=== PATIENT | male | born 1960 | race Caucasian/White ===

== ENCOUNTER 2017-10-15 05:46 | Emergency (ER) | payer BC ==
[~2017-10-15] VITALS: Ht 182.9 cm; Wt 101.2 kg
[2017-10-15 06:40] LABS: HEMATOCRIT 45.4 % (38.0-50.0); HEMOGLOBIN 15.7 G/DL (12.5-16.6); MCH 31.6 PG (29.0-34.0); MCHC 34.6 G/DL (30.0-36.0); MCV 91.3 FL (86-99); PLATELET COUNT 237 K/uL (156-360); RBC DIS.WIDTH-CV 12.3 % (11.8-14.6); RBC DIS.WIDTH-SD 40.7 % (39-53); RED BLOOD COUNT 4.97 M/uL (4.00-5.50); WHITE BLOOD COUNT 10.8 K/uL (4.1-10.2)
[2017-10-15] MEDS ORDERED: LIPITOR10 MG PO (06:44)
[2017-10-15 06:59] LABS: CHLORIDE 105 MEQ/L (99-109); CREATININE 1.3 MG/DL (0.6-1.3); GFR ESTIMATE (CALCULATED) > 59 mL/min/ (58.99-99999); GLUCOSE 108 mg/dL (70-99); SODIUM 142 MEQ/L (136-147); UREA NITROGEN (BUN) 18 mg/dL (9-23)
[2017-10-15 07:57] LABS: APPEARANCE CLEAR ((CLEAR)); BILIRUBIN NEGATIVE; BLOOD LARGE; COLOR YELLOW ((YELLOW)); GLUCOSE (STRIP) NEGATIVE; KETONES NEGATIVE; LEUKOCYTES NEGATIVE; NITRITE NEGATIVE; PROTEIN (STRIP) NEGATIVE; SPECIFIC GRAVITY 1.024 (1.000-1.030); UROBILINOGEN 0.2 MG/DL (0.2-1.0)
[2017-10-15 08:01] LABS: BACTERIA NONE SEEN /HPF; EPITHELIAL CELLS RARE /HPF; MUCUS 1+ /LPF; RED BLOOD CELLS 40-50 /HPF (0-5); UCUL ADDED? NO; WHITE BLOOD CELLS 0-5 /HPF (0-5)
[2017-10-15] MEDS ORDERED: ZOFRAN ODT8 MG PO (10:00)
[2017-10-15] MEDS ORDERED: PERCOCET 5/31 TABLET PO (10:00)
[2017-10-15] MEDS ORDERED: FLOMAX0.4 MG PO (10:00)
[2017-10-15 10:28] VITALS: BP 148/75
== END 2017-10-15 10:28 | disposition home or self-care (01) ==
LOC: EME 05:46
DX: N20.0 Calculus of kidney (principal)
CPT/HCPCS: 74176; 80048; 81003; 85027; J1885; J2270; J2405; J7030